=== PATIENT | female | born 1945 | race Caucasian/White ===

== ENCOUNTER 2018-01-11 11:04 | Emergency (ER) | payer MEDICARE ==
[~2018-01-11] VITALS: Ht 157.5 cm; Wt 73.0 kg
[~2018-01-11 11:04] MED LIST: ACTO35TA PO; ADVA100A INH; ASPI81TA82 PO; CALC-179 PO; COMBAER INH; FISH1000 PO; LISI10TA PO; PRAV40TA PO; VITA400C70 PO
[2018-01-11 11:08] VITALS: BP 212/83; PULSE 92; RESP 16; TEMP 97.9; O2SAT 96
[2018-01-11] MEDS ORDERED: VITA200T10 P-ARTICULR (12:07)
[2018-01-11] MEDS ORDERED: ADVA250A INH (12:07)
[2018-01-11] MEDS ORDERED: UMEC1INH INH (12:07)
[2018-01-11] MEDS ORDERED: ASPI81CH6 CHEW (12:07)
[2018-01-11] MEDS ORDERED: VENTAER INH (12:07)
[2018-01-11] MEDS ORDERED: PRAV40TA2 PO (12:07)
[2018-01-11] MEDS ORDERED: FLUT55AE INH (12:07)
[2018-01-11] MEDS ORDERED: LISI20TA PO (12:07)
[2018-01-11] MEDS ORDERED: MONT10TA4 PO (12:07)
[2018-01-11] MEDS ORDERED: FISHCAP4 PO (12:07)
[2018-01-11] MEDS ORDERED: CALC1TAB87 PO (12:07)
--- NOTE | 2018-01-11 12:49 | PD ---
HPI Chief Complaint: Injury Time Seen by Provider: 12:16 Travel History International Travel<30 days: No Contact w/Intl Traveler<30days: No Traveled to known affect area: No History of Present Illness HPI 72-year-old female here with right foot pain after a twisting injury yesterday. She twisted the foot and falling into a seated position in the grass yesterday. No head injury loss of consciousness. She reports no other injuries. She has pain in the foot that is worse with weightbearing and relieved with rest and elevation. Symptom severity mild. No paresthesia or weakness in the foot. PFSH Past Medical History Asthma: Yes High Cholesterol: Yes COPD: Yes Diminished Hearing: No Hypertension: Yes Respiratory: Yes (COPD) Immunizations Current: Yes Tetanus Vaccination: > 5 Years Influenza Vaccination: Yes ?: Not Menopausal: Yes Past Surgical History Cholecystectomy: Yes Tonsillectomy: Yes Other Surgery: Yes (LEFT BREAST CYST REMOVED) Social History Alcohol Use: Yes (OCCAISIONAL) Tobacco Use: No Substance Use: No Allergies-Medications (Allergen,Severity, Reaction): Coded Allergies: No Known Allergies (Unverified Adverse Reaction, Unknown, 01/11/18) Reported Meds & Prescriptions Reported Meds & Active Scripts Active Reported Calcium 600 with Vitamin D (Calcium Carbonate-Cholecalciferol) 600-400 mg-Unit Tab 1 Tab PO BID Aspirin Low Dose (Aspirin) 81 Mg Chew 81 Mg CHEW DAILY Fish Oil + D3 (Fish Oil-Cholecalciferol) 1,200-1,000 Mg-Unit Cap 1 Cap PO BID Vitamin E (Vitamin E Mixed) 200 Unit Tablet 1 Tab P-ARTICULR DAILY Incruse Ellipta Inh (Umeclidinium [place] Inh) 0.0625 Mg/Act Inh 62.5 Mcg INH DAILY Montelukast (Montelukast Sodium) 10 Mg Tab 10 Mg PO HS [place] Respiclick Inh (Fluticasone Propionate) 55 Mcg/Actuation Aer.pow.ba 55 Mg INH BID Pravastatin 40 Mg Tab 40 Mg PO DAILY Lisinopril-Hctz 20-12.5 Mg Tab 1 Tab PO BID Ventolin Hfa 18 GM Inh (Albuterol Sulfate) 90 Mcg/Act Aer 1 Puff INH Q4H PRN Advair Diskus Inh (Fluticasone-Salmeterol Inh) 250-50 Mcg/Blist Aer 1 Puff INH BID Rinse mouth after use. Review of Systems Except as stated in HPI: all other systems reviewed are Neg General / Constitutional: No: Fever Eyes: No: Visual changes HENT: No: Headaches Cardiovascular: No: Chest Pain or Discomfort Respiratory: No: Shortness of Breath Gastrointestinal: No: Abdominal Pain Genitourinary: No: Dysuria Physical Exam Narrative GENERAL: Alert well-appearing 9-year-old female SKIN: Warm and dry. HEAD: Normocephalic. Atraumatic EYES: No injection or drainage. NECK: Supple, trachea midline. No midline spine tenderness. CARDIOVASCULAR: Regular rate and rhythm. No chest wall tenderness RESPIRATORY: Breath sounds equal bilaterally. No accessory muscle use. GASTROINTESTINAL: Abdomen soft, non-tender, nondistended. MUSCULOSKELETAL: No cyanosis, or edema. Right lower extremity: +TTP over the dorsal aspect of the foot with mild swelling and ecchymosis. No obvious deformity. 2+ DP pulse. Normal sensation. Brisk cap refill. BACK: Nontender without obvious deformity. No CVA tenderness. Data Data Last Documented VS Vital Signs Date Time Temp Pulse Resp B/P (MAP) Pulse Ox O2 Delivery O2 Flow Rate FiO2 01/11/18 11:08 97.9 92 16 212/83 (126) 96 Orders Orders Foot, Complete ([id number]) (01/11/18 ) [facility] Medical Decision Making Medical Screen Exam Complete: Yes Emergency Medical Condition: Yes Differential Diagnosis Metatarsal fracture, midfoot sprain, contusion Narrative Course 72-year-old female here with right foot pain. The extremity is neurovascular intact. X-ray negative for fracture. Diagnosis Primary Impression: Foot sprain Qualified Codes: S93.602A - Unspecified sprain of left foot, initial encounter Referrals: Primary Care Physician Additional Instructions: Ice and elevate the extremity. Medication as directed. Follow-up with her primary doctor. Scripts Tramadol (Ultram) 50 Mg Tab 50 MG PO Q6H Y for PAIN, #12 TAB 0 Refills Prov: Ronda Lemons 01/11/18 Disposition: 01 DISCHARGE HOME Condition: Stable Ronda Lemons Jan 11, 2018 12:49
--- NOTE | 2018-01-11 13:09 | RADRPT ---
EXAM DATE/TIME: 01/11/2018 12:49 [place] COMPARISON: No previous studies available for comparison. INDICATIONS : Fell, right foot pain MEDICAL HISTORY : Chronic obstructive pulmonary disease. SURGICAL HISTORY : None. ENCOUNTER: Initial ACUITY: 2 days PAIN SCORE: 8/10 LOCATION: Right foot FINDINGS: Three view examination of the right foot demonstrates no soft tissue swelling, dislocation, or fractu re. The tarsal bones appear intact. The interphalangeal and metatarsophalangeal joints are intact. The calcaneus is intact. There is minimal hypertrophic change at the Achilles attachment site. Bon y mineralization is normal. CONCLUSION: No acute disease. Albert Roche MD on January 11, 2018 at 13:05 Board Certified Radiologist. This report was verified electronically.
[2018-01-11] MEDS ORDERED: TRAM50 PO (13:24)
== END 2018-01-11 13:40 | disposition home or self-care (01) ==
LOC: PHED 11:04 → PHEFT 13:40
DX: S93.602A Unspecified sprain of left foot, initial encounter (principal); E78.00 Pure hypercholesterolemia, unspecified; I10 Essential (primary) hypertension; J44.9 Chronic obstructive pulmonary disease, unspecified; X50.1XXA Overexertion from prolonged static or awkward postures, initial encounter
CPT/HCPCS: 73630; 99283